=== PATIENT | female | born 1990 | race American Indian/Alaskan Native ===

== ENCOUNTER 2018-08-25 20:04 | Emergency (ER) | payer SELFPAY ==
[2018-08-25 20:18] VITALS: BP 158/99
--- NOTE | 2018-08-25 22:08 | Emergency Department Report ---
Blank Doc - Documentation Documentation: this is a 28-year-old female that presents with productive cough and SOB with chest pain. This initial assessment/diagnostic orders/clinical plan/treatment(s) is/are subject to change based on patient's health status, clinical progression and re- assessment by fellow clinical providers in the ED. Further treatment and workup at subsequent clinical providers discretion. Patient/guardians urged not to elope from the ED as their condition may be serious if not clinically assessed and managed. Initial orders include: 1- Patient sent to [facility] for further evaluation and treatment 2- labs 3- CXR 4- EKG
[2018-08-25 22:55] LABS: Basophils % (Auto) 0.3 % (0.0-1.8); Eosinophils # (Auto) 0.1 K/mm3 (0.0-0.4); Eosinophils % (Auto) 0.6 % (0.0-4.3); Hematocrit 27.9 % (30.3-42.9); Hemoglobin 9.4 gm/dl (10.1-14.3); Lymphocytes % (Auto) 22.1 % (13.4-35.0); Mean Corpuscular HGB Conc 34 % (30-34); Monocytes % (Auto) 7.2 % (0.0-7.3); Platelet Count 334 K/mm3 (140-440); Red Blood Count 4.13 M/mm3 (3.65-5.03); Red Cell Distribution Width 16.4 % (13.2-15.2)
[2018-08-25 22:56] LABS: Mean Corpuscular Volume 68 fl (79-97)
[2018-08-25 23:07] LABS: INR 0.96 (0.87-1.13); Partial Thromboplastin Time 30.9 Sec. (24.2-36.6)
[2018-08-25 23:13] LABS: BUN/Creatinine Ratio 20; Blood Urea Nitrogen 12 mg/dL (7-17); Calcium 9.1 mg/dL (8.4-10.2); Hemolysis Index 0
--- NOTE | 2018-08-25 23:58 | XRay Report ---
PROCEDURE: XR CHEST ROUTINE 2V TECHNIQUE: PA and lateral chest radiographs were obtained. HISTORY: Chest Pain COMPARISONS: None. FINDINGS: Heart: Normal. Mediastinum/Vessels: Normal. Lungs/Pleural space: Normal. Bony thorax: No acute osseous abnormality. IMPRESSION: Normal examination. This document is electronically signed by Helder Almeida MD., Aug 25 2018 11:56:07 PM ET
[2018-08-26] MEDS ORDERED: REGLAN PO ONE (02:35)
[2018-08-26] MEDS ORDERED: TORADOL IM ONE (02:35)
[2018-08-26] MEDS ORDERED: BENADRYL PO ONE (02:35)
--- NOTE | 2018-08-26 02:35 | Emergency Department Report ---
ED General Adult HPI - General Chief complaint: Dyspnea/Respdistress Stated complaint: SHORT OF BREATH, HEADACHE, AND CHEST PAIN Time Seen by Provider: 08/25/18 22:07 Source: patient Mode of arrival: Ambulatory Limitations: No Limitations - History of Present Illness Initial comments: Pt is a 28 yo female who presents to the ED with c/o diffuse CP that began two days ago. She states that it hurts to breathe. She has associated cough with sputum production, congestion, and SOB. SHe denies any LE edema, recent long car or plane ride, OCPs, recent surgery, or recent immobilization. She denies any personal or family hx of cardiac issues or DVT/PE. She has a PMHx of anemia and HTN but has not been taking her medication. She states she has refills available at the pharmacy. She has a PMHx of asthma and uses an albuterol inhaler. SHe states that previously she has had intermittent tachycardia and states she has been seen about this and they did not find anything wrong per pt. pt states she also has a frontal BRAY. denies any vision changes, numbness or weakness, N/v. states she has similar HAs when her pressure is elevated. has not taken anything for the headache. - Related Data Previous Rx's Medication Instructions Recorded Last Taken Type Azithromycin [Zithromax Z-MARQUES] 0 mg PO DAILY 5 Days #6 tab 08/26/18 Unknown Rx Benzonatate [Tessalon Perles] 100 mg PO Q8HR PRN #20 capsule 08/26/18 Unknown Rx guaiFENesin ER [Mucinex ER] 600 mg PO Q12H #14 tablet.er 08/26/18 Unknown Rx Allergies Allergy/AdvReac Type Severity Reaction Status Date / Time No Known Allergies Allergy Verified 08/25/18 20:09 ED Review of Systems ROS: Stated complaint: SHORT OF BREATH, HEADACHE, AND CHEST PAIN Other details as noted in HPI Comment: All other systems reviewed and negative ED Past Medical Hx - Past Medical History Hx Hypertension: Yes Hx Diabetes: Yes (boarderline) Hx Asthma: Yes - Surgical History Additional Surgical History: x2 - Social History Smoking Status: Current Every Day Smoker Substance Use Type: Alcohol, Marijuana - Medications Home Medications: Home Medications Medication Instructions Recorded Confirmed Last Taken Type Azithromycin [Zithromax Z-MARQUES] 0 mg PO DAILY 5 Days #6 tab 08/26/18 Unknown Rx Benzonatate [Tessalon Perles] 100 mg PO Q8HR PRN #20 capsule 08/26/18 Unknown Rx guaiFENesin ER [Mucinex ER] 600 mg PO Q12H #14 tablet.er 08/26/18 Unknown Rx ED Physical Exam - General Limitations: No Limitations General appearance: alert, in no apparent distress - Head Head exam: Present: atraumatic, normocephalic - Eye Eye exam: Present: normal appearance - Respiratory Respiratory exam: Present: normal lung sounds bilaterally. Absent: respiratory distress, wheezes, rales, rhonchi, stridor, chest wall tenderness, accessory muscle use, decreased breath sounds, prolonged expiratory - Cardiovascular Cardiovascular Exam: Present: regular rate, tachycardia (mildly ), normal heart sounds. Absent: systolic murmur, diastolic murmur, rubs, gallop - Neurological Exam Neurological exam: Present: alert, oriented X3 - Psychiatric Psychiatric exam: Present: normal affect, normal mood - Skin Skin exam: Present: warm, dry, intact ED Course Vital Signs 08/25/18 08/25/18 08/26/18 20:10 22:07 03:25 Temperature 97.8 F 97.8 F Pulse Rate 122 H 117 H 81 Respiratory 18 18 18 Rate Blood Pressure 158/99 158/99 O2 Sat by Pulse 100 100 99 Oximetry ED Medical Decision Making - Lab Data Result diagrams: 08/25/18 22:27 08/25/18 22:34 Lab Results 08/25/18 08/25/18 08/25/18 Range/Units 22:27 22:27 22:34 WBC 13.6 H (4.5-11.0) K/mm3 RBC 4.13 (3.65-5.03) M/mm3 Hgb 9.4 L (10.1-14.3) gm/dl Hct 27.9 L (30.3-42.9) % MCV 68 L (79-97) fl MCH 23 L (28-32) pg MCHC 34 (30-34) % RDW 16.4 H (13.2-15.2) % Plt Count 334 (140-440) K/mm3 Lymph % (Auto) 22.1 (13.4-35.0) % Citrus % (Auto) 7.2 (0.0-7.3) % Eos % (Auto) 0.6 (0.0-4.3) % Baso % (Auto) 0.3 (0.0-1.8) % Lymph # 3.0 (1.2-5.4) K/mm3 Citrus # 1.0 H (0.0-0.8) K/mm3 Eos # 0.1 (0.0-0.4) K/mm3 Baso # 0.0 (0.0-0.1) K/mm3 Seg Neutrophils % 69.8 (40.0-70.0) % Seg Neutrophils # 9.5 H (1.8-7.7) K/mm3 PT 13.4 (12.2-14.9) Sec. INR 0.96 (0.87-1.13) APTT 30.9 (24.2-36.6) Sec. D-Dimer 153.86 (0-234) ng/mlDDU Sodium (137-145) mmol/L Potassium (3.6-5.0) mmol/L Chloride (98-107) mmol/L Carbon Dioxide (22-30) mmol/L Anion Gap mmol/L BUN (7-17) mg/dL Creatinine (0.7-1.2) mg/dL Estimated GFR ml/min BUN/Creatinine Ratio % Glucose (65-100) mg/dL Calcium (8.4-10.2) mg/dL Troponin T (0.00-0.029) ng/mL HCG, Qual Negative (Negative) 08/25/18 08/26/18 Range/Units 22:34 01:06 WBC (4.5-11.0) K/mm3 RBC (3.65-5.03) M/mm3 Hgb (10.1-14.3) gm/dl Hct (30.3-42.9) % MCV (79-97) fl MCH (28-32) pg MCHC (30-34) % RDW (13.2-15.2) % Plt Count (140-440) K/mm3 Lymph % (Auto) (13.4-35.0) % Citrus % (Auto) (0.0-7.3) % Eos % (Auto) (0.0-4.3) % Baso % (Auto) (0.0-1.8) % Lymph # (1.2-5.4) K/mm3 Citrus # (0.0-0.8) K/mm3 Eos # (0.0-0.4) K/mm3 Baso # (0.0-0.1) K/mm3 Seg Neutrophils % (40.0-70.0) % Seg Neutrophils # (1.8-7.7) K/mm3 PT (12.2-14.9) Sec. INR (0.87-1.13) APTT (24.2-36.6) Sec. D-Dimer (0-234) ng/mlDDU Sodium 139 (137-145) mmol/L Potassium 3.7 (3.6-5.0) mmol/L Chloride 103.0 (98-107) mmol/L Carbon Dioxide 24 (22-30) mmol/L Anion Gap 16 mmol/L BUN 12 (7-17) mg/dL Creatinine 0.6 L (0.7-1.2) mg/dL Estimated GFR > 60 ml/min BUN/Creatinine Ratio 20 % Glucose 98 (65-100) mg/dL Calcium 9.1 (8.4-10.2) mg/dL Troponin T < 0.010 < 0.010 (0.00-0.029) ng/mL HCG, Qual (Negative) Vital Signs 08/25/18 08/25/18 08/26/18 20:10 22:07 03:25 Temperature 97.8 F 97.8 F Pulse Rate 122 H 117 H 81 Respiratory 18 18 18 Rate Blood Pressure 158/99 158/99 O2 Sat by Pulse 100 100 99 Oximetry - EKG Data EKG shows normal: axis, intervals, QRS complexes Rate: tachycardia (111) - EKG Data 08/26/18 03:08 non specific T wave changes - Radiology Data Radiology results: report reviewed PROCEDURE: XR CHEST ROUTINE 2V TECHNIQUE: PA and lateral chest radiographs were obtained. HISTORY: Chest Pain COMPARISONS: None. FINDINGS: Heart: Normal. Mediastinum/Vessels: Normal. Lungs/Pleural space: Normal. Bony thorax: No acute osseous abnormality. IMPRESSION: Normal examination. This document is electronically signed by Helder Almeida MD., Aug 25 2018 11:56:07 PM ET Transcribed By: RB Dictated By: HELDER ALMEIDA MD Electronically Authenticated By: HELDER ALMEIDA MD Signed Date/Time: 08/25/18 3440 - Medical Decision Making Pt is a 28 yo female who presents to the ED with c/o diffuse CP that began two days ago. She states that it hurts to breathe. She has associated cough with sputum production, congestion, and SOB. SHe denies any LE edema, recent long car or plane ride, OCPs, recent surgery, or recent immobilization. She denies any p ersonal or family hx of cardiac issues or DVT/PE. She has a PMHx of anemia and HTN but has not been taking her medication. She states she has refills available at the pharmacy. She has a PMHx of asthma and uses an albuterol inhaler. SHe states that previously she has had intermittent tachycardia and states she has been seen about this and they did not find anything wrong per pt. CXR with no acute process. EKG with sinus tach otherwise no acute process. elevated WBC at 13, 000. d-dimer is negative. trop negative x 2. chest pain unlikely to be cardiac in nature. most likely related to acute bronchitis. on repeat vitals were normal with HR in the 80s and oxygen saturation 98% on RA. pt given mu cinex, tessalon perles, and a zpak. advised pt to take all medication as prescribed. follow up with PCP in the next 2-3 days. return to the emergency room for any new or worsening symptoms. pt states she also has a frontal BRAY. denies any vision changes, numbness or weakness, N/v. states she has similar HAs when her pressure is elevated. has not taken anything for the headache. pt given medications in the ED for a headache and headache completely resolved. pt states she already has refills of her blood pressure medication and iron pills for her anemia. discussed with pt to please take her medication as it is prescribed by her doctor. follow up with PCP in the next 2-3 days. return to the emergency room for any new or worsening symptoms. - Differential Diagnosis GERD, costochrondritis, PE, PTX, PNA, Bronchitis, URI Critical care attestation.: If time is entered above; I have spent that time in minutes in the direct care of this critically ill patient, excluding procedure time. ED Disposition Clinical Impression: Cough, SOB (shortness of breath) Chest pain Qualifiers: Chest pain type: unspecified Qualified Code(s): R07.9 - Chest pain, unspecified Disposition: DC-01 TO HOME OR SELFCARE Is pt being admited?: No Does the pt Need Aspirin: No Condition: Stable Instructions: Chest Pain (ED), Acute Bronchitis (ED) Additional Instructions: Please take all medication as prescribed. please follow up with a primary care doctor in the next 2-3 days. return to the emergency room for any new or worsening symptoms. please refill your medications prescribed to you by your primary care doctor and take them as prescribed as soon as possible. Prescriptions: guaiFENesin ER [Mucinex ER] 600 mg PO Q12H #14 tablet.er Benzonatate [Tessalon Perles] 100 mg PO Q8HR PRN #20 capsule PRN Reason: Cough Azithromycin [Zithromax Z-MARQUES] 0 mg PO DAILY 5 Days #6 tab Referrals: MARKY STERLING MD [Primary Care Provider] - 2-3 Days Forms: Work/School Release Form(ED) Time of Disposition: 03:09 Print Language: ALBANIAN
== END 2018-08-26 03:25 | disposition home or self-care (01) ==
LOC: ED 20:04
DX: R07.89 Other chest pain (principal); R06.02 Shortness of breath; R09.81 Nasal congestion; R05 Cough; I10 Essential (primary) hypertension; J45.909 Unspecified asthma, uncomplicated; E11.9 Type 2 diabetes mellitus without complications; F17.200 Nicotine dependence, unspecified, uncomplicated; F12.10 Cannabis abuse, uncomplicated; Z86.2 Personal history of diseases of the blood and blood-forming organs and certain disorders involving the immune mechanism
CPT/HCPCS: 36415; 71046; 80048; 84484; 84703; 85025; 85379; 85610; 85730; 93005; 93010; 96372; 99284; J1885

== ENCOUNTER 2018-09-11 22:28 | Emergency (ER) | payer OTHER ==
--- NOTE | 2018-09-11 23:23 | XRay Report ---
PROCEDURE: XR SPINE LUMBOSACRAL 2-3V TECHNIQUE: Lumbar spine radiographs, AP, lateral and spot views. HISTORY: back pain COMPARISONS: None . FINDINGS: Alignment: Normal . Vertebral body heights/Disk spaces: Normal . Fracture(s): None . Facets: Normal . Bone mineralization: Normal . IMPRESSION: Normal Examination . This document is electronically signed by Caitlyn Haile DO., September 11 2018 11:21:59 PM ET
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
[2018-09-12] MEDS ORDERED: IBUPROFEN PO ONE (01:04)
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
[2018-09-12 03:31] VITALS: BP 136/86
== END 2018-09-12 03:29 | disposition home or self-care (01) ==
LOC: ED 22:28
DX: S39.012A Strain of muscle, fascia and tendon of lower back, initial encounter (principal); S00.03XA Contusion of scalp, initial encounter; I10 Essential (primary) hypertension; E11.9 Type 2 diabetes mellitus without complications; J45.909 Unspecified asthma, uncomplicated; F17.200 Nicotine dependence, unspecified, uncomplicated; V49.49XA Driver injured in collision with other motor vehicles in traffic accident, initial encounter; Y93.89 Activity, other specified; Y92.89 Other specified places as the place of occurrence of the external cause; Y99.8 Other external cause status
CPT/HCPCS: 70450; 72100

== ENCOUNTER 2019-01-04 23:23 | Emergency (ER) | payer OTHER ==
[2019-01-04 23:54] VITALS: BP 158/82
--- NOTE | 2019-01-05 00:20 | XRay Report ---
CHEST 2 VIEWS INDICATION / CLINICAL INFORMATION: cough and fever. COMPARISON: 08/25/18 FINDINGS: SUPPORT DEVICES: None. HEART / MEDIASTINUM: No significant abnormality. LUNGS / PLEURA: No significant pulmonary or pleural abnormality. No pneumothorax. ADDITIONAL FINDINGS: No significant additional findings. IMPRESSION: 1. No acute findings. No significant change. Signer Name: Sania Cintron MD Signed: 01/05/2019 12:16 AM Workstation Name: [id number]
--- NOTE | 2019-01-05 00:51 | Emergency Department Report ---
Minor Respiratory - HPI Chief Complaint: Upper Respiratory Infection Stated Complaint: BODY PAIN CHEST BURN COUGH FEVER Time Seen by Provider: 01/05/19 00:44 Duration: 1week Minor Respiratory: Yes Able to Tolerate Fluids, Yes Cough, Yes Fever, No Rhinorrhea, No Sore Throat, No Ear Pain, No Sick Contacts, No Hemoptysis, No Chest Pain, No Shortness of Breath Other History: 28-year-old -Indian female comes in complaining of body pains cough fever and burning in chest since yesterday. Patient reports that she was placed on antibiotics of amoxicillin 1 week ago. Patient states it's b een taken Tylenol but has taken nothing for her cough. Patient reports that her cough is productive and often gets choked with the mucus in the back of her throat. Patient reports a past medical history of asthma and has been using her albuterol inhaler 3 times a day. Review of past medical history patient has hypertension and is on losartan. She was to nose or congestion. No known drug allergies. ED Review of Systems ROS: Stated complaint: BODY PAIN CHEST BURN COUGH FEVER Other details as noted in HPI ED Past Medical Hx - Past Medical History Previous Medical History?: Yes Hx Hypertension: Yes Hx Diabetes: Yes Hx Asthma: Yes Additional medical history: Obesity - Surgical History Past Surgical History?: Yes Additional Surgical History: x2 - Social History Smoking Status: Current Every Day Smoker Substance Use Type: None - Medications Home Medications: Home Medications Medication Instructions Recorded Confirmed Last Taken Type Azithromycin [Zithromax Z-MARQUES] 0 mg PO DAILY 5 Days #6 tab 08/26/18 Unknown Rx guaiFENesin ER [Mucinex ER] 600 mg PO Q12H #14 tablet.er 08/26/18 Unknown Rx Cyclobenzaprine [Flexeril] 10 mg PO QHS PRN #10 tablet 09/12/18 Unknown Rx Ibuprofen [Motrin] 600 mg PO Q8H PRN #20 tablet 09/12/18 Unknown Rx Benzonatate [Tessalon Perles] 100 mg PO Q8HR PRN #20 capsule 01/05/19 Unknown Rx Cetirizine HCl [Allergy Relief] 10 mg PO QDAY #15 capsule 01/05/19 Unknown Rx Minor Respiratory Exam - Exam General: Vital signs noted. No distress. Alert and acting appropriately. HEENT: Yes Moist Mucous Membranes, No Pharyngeal Erythema, No Pharyngeal Exudates, No Rhinorrhea, No Conjuctival Injection, No Frontal Tenderness, No Maxillary Tenderness Ear: Neither TM Bulge, Neither TM Erythema, Neither EAC Pain, Neither EAC Discharge Neck: Yes Supple, No Adenopathy Lungs: Yes Good Air Exchange, No Wheezes, No Ronchi, No Stridor, No Cough, No Labored Respirations, No Retractions, No Use of Accessory Muscles, No Other Abnormal Lung Sounds Heart: Yes Regular, No Murmur Abdomen: Yes Normal Bowel Sounds, No Tenderness, No Peritoneal Signs Skin: No Rash, No Edema Neurologic: Alert and oriented, no deficits. Musculoskeletal: Unremarkable. ED Course Vital Signs 01/04/19 23:29 Temperature 97.9 F Pulse Rate 98 H Respiratory 18 Rate Blood Pressure 158/82 O2 Sat by Pulse 96 Oximetry ED Medical Decision Making - Radiology Data Radiology results: report reviewed Patient: DIVINA ADLER MR#: [id number] : 1990 Acct:[id number] Age/Sex: 28 / F ADM Date: 01/04/19 Loc: ED Attending Dr: Ordering Physician: ED MD ALLISON Date of Service: 01/04/19 Procedure(s): XR chest routine 2V Accession Number(s): [id number] cc: ED MD ALLISON Fluoro Time In Minutes: CHEST 2 VIEWS INDICATION / CLINICAL INFORMATION: cough and fever. COMPARISON: 08/25/18 FINDINGS: SUPPORT DEVICES: None. HEART / MEDIASTINUM: No significant abnormality. LUNGS / PLEURA: No significant pulmonary or pleural abnormality. No pneu mothorax. ADDITIONAL FINDINGS: No significant additional findings. IMPRESSION: 1. No acute findings. No significant change. Signer Name: Sania Cintron MD Signed: 01/05/2019 12:16 AM Workstation Name: [id number] Transcribed By: DT Dictated By: Cornelio Cintron MD Electronically Authenticated By: Cornelio Cintron MD Signed Date/Time: 01/05/19 0016 DD/ 0015 TD/TT: - Medical Decision Making 28-year-old -Indian female comes in complaining of body pains cough fever and burning in chest since yesterday. Patient reports that she was placed on antibiotics of amoxicillin 1 week ago. Patient states it's been taken Tylenol but has taken nothing for her cough. Patient reports that her cough is productive and often gets choked with the mucus in the back of her throat. Patient reports a past medical history of asthma and has been using her albuterol inhaler 3 times a day. Review of past medical history patient has hypertension and is on losartan. She was to nose or congestion. No known drug allergies. Critical care attestation.: If time is entered above; I have spent that time in minutes in the direct care of this critically ill patient, excluding procedure time. ED Disposition Clinical Impression: URI, acute Disposition: DC-01 TO HOME OR SELFCARE Is pt being admited?: No Does the pt Need Aspirin: No Condition: Stable Instructions: Upper Respiratory Infection (ED) Prescriptions: Cetirizine HCl [Allergy Relief] 10 mg PO QDAY #15 capsule Benzonatate [Tessalon Perles] 100 mg PO Q8HR PRN #20 capsule PRN Reason: Cough Referrals: PRIMARY CARE, [Primary Care Provider] - 3-5 Days
== END 2019-01-05 01:59 | disposition home or self-care (01) ==
LOC: ED 23:23
DX: J06.9 Acute upper respiratory infection, unspecified (principal); I10 Essential (primary) hypertension; E11.9 Type 2 diabetes mellitus without complications; J45.909 Unspecified asthma, uncomplicated; F17.200 Nicotine dependence, unspecified, uncomplicated; Z79.899 Other long term (current) drug therapy
CPT/HCPCS: 71046